=== PATIENT | female | born 1985 | race Caucasian/White ===

== ENCOUNTER 2017-12-05 17:08 | Emergency (ER) | payer OTHER ==
--- NOTE | 2017-12-05 17:21 | PDOC ---
Rapid Medical Evaluation Time Seen by Provider: 12/05/17 17:18 Medical Evaluation: 12/05/17 17:18 The patient presents with a chief complaint of: Cough for one month. Cold like symptoms for one day. Pt. 39 weeks . No vaginal bleeding. Also complains of L side pain I have performed a brief in-person evaluation of this patient; Pertinent physical exam findings: CTAB, RRR I have ordered the following: Nothing The patient will proceed to the ED for further evaluation. Discharge Disposition - Referrals Referrals: Danni Marmolejo MD [Primary Care Provider] - - Patient Instructions - Post Discharge Activity
[2017-12-05 17:31] VITALS: BMI 25.7
[2017-12-05] MEDS ORDERED: ALBUTEROL SO4 0.083% IH SOL 2.5 MG/3 ML VIAL.NEB. NEB ONE ×2 (21:03→21:10)
--- NOTE | 2017-12-05 21:03 | PDOC ---
History of Present Illness - General Chief Complaint: Cold Symptoms Stated Complaint: COUGH, 39 WEEK PREG Time Seen by Provider: 12/05/17 17:18 History Source: Patient Exam Limitations: No Limitations - History of Present Illness Initial Comments: 32 y/o afebrile female, approximately 38 weeks with due date of c/o cough since yesterday. The patient states the cough is dry and is so strong and persistent she feels like she can't breathe. She also has pain on her left side and ribs and says her lungs hurt. She was at an urgent care and they send her here. She denies f /c, n/v/d, MOHAN, body aches, CP, abnormal vaginal discharge. SCIENTIST is Dr. Marmolejo Past History - Past Medical History Allergies/Adverse Reactions: Allergies Allergy/AdvReac Type Severity Reaction Status Date / Time No Known Allergies Allergy Verified 12/05/17 17:21 Home Medications: Ambulatory Orders Oseltamivir Phosphate [Tamiflu -] 75 mg PO BID #10 capsule 12/05/17 COPD: No - Suicide/Smoking/Psychosocial Hx Smoking History: Never smoked Information on smoking cessation initiated: No Hx Alcohol Use: No Drug/Substance Use Hx: No Substance Use Type: None Review of Systems - Review of Systems Able to Perform ROS?: Yes Is the patient limited French proficient: Yes Constitutional: No: Symptoms Reported HEENTM: Yes: Nose Congestion. No: Ear Discharge, Nose Pain Respiratory: Yes: Cough, Shortness of Breath. No: Wheezing, Hemoptysis Cardiac (ROS): No: Chest Pain ABD/GI: No: Nausea, Vomiting Neurological: No: Headache, Dizziness *Physical Exam - Vital Signs Last Vital Signs Temp Pulse Resp BP Pulse Ox 98.2 F 89 19 115/71 98 12/05/17 17:19 12/05/17 17:19 12/05/17 17:19 12/05/17 17:19 12/05/17 17:19 - Physical Exam General Appearance: Yes: Nourished, Appropriately Dressed, Other (38 week gravid , ambulatory female with persistent cough) HEENT: positive: EOMI, ALLISON, Nasal Congestion, Rhinorrhea (clear). negative: Tonsillar Exudate, Tonsillar Erythema, TM Bulging, TM Dull, TM Erythema Respiratory/Chest: positive: Lungs Clear, Normal Breath Sounds. negative: Accessory Muscle Use, Labored Respiration, Wheezing Cardiovascular: positive: Regular Rhythm, Regular Rate Neurologic: positive: automotive center manager II-XII NML intact Medical Decision Making - Medical Decision Making A/P: 32 y/o female, approximately 38 weeks , c/o persistent cough with SOB since yesterday. Spoke with Dr. Louis, press operator carbon blocks SCIENTIST, and he suggests flu swab, albuterol nebulizer. If flu is negative will treat with a zpack and send upstairs for monitoring. Gave patient 2 albuterol nebs Influenza A - negative Influenza B - Positive Patient will be given Tamiflu in the ER, sent and Rx for tamiflu to her pharmacy and sent upstairs to L&D for monitoring. The patient was instructed to take entire course of Tamiflu and return to the ER with any worsening or concerning symptoms. The patient verbalizes understanding of all instructions, has no further questions and is awaiting transfer to L&D for monitoring. *DC/Admit/Observation/Transfer Diagnosis at time of Disposition: Cough, Influenza B - Discharge Dispostion Condition at time of disposition: Stable - Prescriptions Prescriptions: Oseltamivir Phosphate [Tamiflu -] 75 mg PO BID #10 capsule - Referrals Referrals: Danni Marmolejo MD [Primary Care Provider] - - Patient Instructions Printed Discharge Instructions: DI for Influenza -- Adult Additional Instructions: Discharge Instructions: -You tested Positive for Influenza B -A prescription for Tamiflu was sent to your pharmacy; please take entire course -Follow up with your SCIENTIST within 1 week -Return to the ER with any worsening or concerning symptoms. - Post Discharge Activity
[2017-12-05] MEDS ORDERED: ALBUTEROL SO4 2.5/IPRATROPIUM 0.5 INH SOL 3 ML VIAL.NEB. NEB ONE (21:06)
[2017-12-05] MEDS ORDERED: OSELTAMIVIR PHOSPHATE 75 MG CAPSULE PO ONE (22:13)
[2017-12-05] MEDS ORDERED: OSELTAMIVIR PHOSPHATE 75 MG CAPSULE ONE (22:17)
[2017-12-05 23:09] VITALS: BP 114/59; PULSE 82; TEMP 98.9
== END 2017-12-05 23:45 | disposition home or self-care (01) ==
LOC: JER 17:08
PROC: 3E0F7GC Introduction of Other Therapeutic Substance into Respiratory Tract, Via Natural or Artificial Opening (ICD-10-PCS; principal; 2017-12-05)
DX: O98.513 Other viral diseases complicating pregnancy, third trimester (principal); J10.1 Influenza due to other identified influenza virus with other respiratory manifestations; Z3A.39 39 weeks gestation of pregnancy
CPT/HCPCS: 87804; 99281-25

== ENCOUNTER 2017-12-15 01:50 | Inpatient (IN) | payer OTHER ==
[2017-12-15] MEDS ORDERED: DEXTROSE 5%-LACTATED RINGERS 1,000 ML IV SCH (02:00)
[2017-12-15 03:05] VITALS: BMI 25.9
[2017-12-15 03:05] LABS: BASO % 0.3 % (0-2.0); EOS % 0.8 % (0-4.5); HEMATOCRIT 29.1 % (32.4-45.2); HEMOGLOBIN 9.2 GM/dL (10.7-15.3); LYMPH % 33.9 % (8-40); MCH 24.2 pg (25.7-33.7); MCHC 31.5 g/dl (32.0-36.0); MEAN CELL VOLUME 76.9 fl (80-96); MEAN PLT VOLUME 9.9 fl (7.5-11.1); MONO % 10.7 % (3.8-10.2); NEUT % 54.3 % (42.8-82.8); PLATELET COUNT 179 K/MM3 (134-434); RBC 3.78 M/mm3 (3.60-5.2); RDW 15.7 % (11.6-15.6); WHITE BLOOD COUNT 3.8 K/mm3 (4.0-10.0)
[2017-12-15 03:16] LABS: INR 0.9 (0.82-1.09); PROTHROMBIN TIME (PATIENT) 10.2 SEC (9.98-11.88)
[2017-12-15 03:19] LABS: ACTIVATED PTT 31.1 SECONDS (26.9-34.4)
[2017-12-15 03:28] LABS: ANION GAP 10 (8-16); BLOOD UREA NITROGEN 6 mg/dL (7-18); CALCIUM 7.4 mg/dL (8.5-10.1); CHLORIDE 110 mmol/L (98-107); CO2 20 mmol/L (21-32); CREATININE 0.3 mg/dL (0.55-1.02); GLUCOSE,RANDOM 90 mg/dL (74-106); POTASSIUM 3.9 mmol/L (3.5-5.1); SODIUM 140 mmol/L (136-145)
[2017-12-15] MEDS ORDERED: OXYTOCIN 20 UNITS in 0.9% NS 20 UNIT/1,000 ML INFUS.BAG IV ONE (03:44)
[2017-12-15] MEDS ORDERED: LIDOCAINE HCL 1% PRESERVATIVE FREE - 30ML VIAL ONE (03:45)
--- NOTE | 2017-12-15 04:19 | HP ---
Past Medical History - Primary Care Physician PCP:: Jeferson Marie - Admission Chief Complaint: 32yo P2 with at EGA 39w5d with spontaneous active labor. 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, was prescribed Valtrex but stopped using it 1 wk ago GBS Negative Anemia History Source: Patient, Medical Record Limitations to Obtaining History: No Limitations - Past Medical History SUPERVISOR CAB: No: Alzheimer's, CVA, Dementia, Migraine, Multiple Sclerosis, Peripheral Neuropathy, Parkinson's, Seizure, Syncope, TIA, Vertigo, Other Cardiovascular: No: AFIB, Aneurysm, Aortic Insufficiency, Aortic Stenosis, CAD, CHF, Deep Vein Thrombosis, HTN, Hyperlipdemia, ID, Mitral Insufficiency, Mitral Stenosis, Murmur, Pulmonary Hypertension, Other Pulmonary: No: Asthma, Bronchitis, Cancer, COPD, O2 Dependent, Pneumonia, Previously Intubated, Pulmonary Embolus, Pulmonary Fibrosis, Sleep Apnea, Other Gastrointestinal: No: Ascites, Cancer, Constipation, Crohn's Disease, Diverticulitis, Diverticulosis, Esophageal Varices, Gastritis, GERD, GI Bleed, Hemorrhoids, Hiatal Hernia, Inflamatory Bowel Disease, Irritable Bowel Disease, Pancreatitis, Peptic Ulcer Disease, Ulcerative Colitis, Other Hepatobiliary: No: Cirrhosis, Cholelithiasis, Cholecystitis, Choledocholithiasis , Hepatitis A, Hepatitis B, Hepatitis C, Other Renal/: No: Renal Failure, Renal Inusuff, BPH, Cancer, Hematuria, Hemodialysis , Neurogenic Bladder, Renal Calculi, UTI, Other Reproductive: Yes: Other (h/o HSV, HPV, Chlamydia) ...: 5 ...Para: 2 ...Term: 2 ...: 0 ...Spon : 0 ...Induced : 2 ...Multiple Gestation: 0 ...LMP: 03/12/17 ... Weeks Gestation by Dates: 39.5 ...EDC by Dates: 12/17/17 Heme/Onc: Yes: Anemia Infectious Disease: Yes: Other (h/o HSV, HPV, Chlamydia) Psych: No: Addictions, Anxiety, Bipolar, Depression, Panic, Psychosis, Schizophrenia, Other Musculoskeletal: No: Bursitis, Chronic low back pain, Hemiparesis, Hemiplegia, Osteoarthritis, Paraplegia, Other Rheumatology: No: Fibromyalgia, Gout, Lupus, Rheumatoid Arthritis, Sarcoidosis, Vasculitis, Other ENT: No: Allergic Rhinitis, Sinusitis, Other Endocrine: No: Emmons's Disease, Mojgan's Disease, Diabetes Insipidus, Diabetes Mellitus, Hyperparathyroidism, Hyperthyroidism, Hypothyroidism, Osteopenia, SIADH, Other Dermatology: No: Basal Cell, Cellulitis, Eczema, Melanoma, Psoriasis, Squamous Cell, Other - Past Surgical History Past Surgical History: Yes: None Hx Myomectomy: No Hx Transabdominal Cerclage: No - Smoking History Smoking history: Never smoked Have you smoked in the past 12 months: No - Alcohol/Substance Use Hx Alcohol Use: No History of Substance Use: reports: None - Social History Usual Living Arrangement: Yes: With Spouse, With Child ADL: Independent History of Recent Travel: No Home Medications - Allergies Allergies/Adverse Reactions: Allergies Allergy/AdvReac Type Severity Reaction Status Date / Time doxycycline Allergy Mild Rash Verified 12/15/17 02:37 Family Disease History - Family Disease History Family History: Unremarkable Review of Systems - Review of Systems Constitutional: reports: Other (contractions, labor) Eyes: reports: No Symptoms HENT: reports: No Symptoms Neck: reports: No Symptoms Cardiovascular: reports: No Symptoms Respiratory: reports: No Symptoms Gastrointestinal: reports: No Symptoms Genitourinary: reports: No Symptoms Breasts: reports: No Symptoms Reported Musculoskeletal: reports: No Symptoms Integumentary: reports: No Symptoms Neurological: reports: No Symptoms Endocrine: reports: No Symptoms Hematology/Lymphatic: reports: No Symptoms Psychiatric: reports: No Symptoms Pain Intensity: 7 Physical Exam - Maternity Vital Signs: Vital Signs Temperature 98.6 F 12/15/17 03:00 Pulse Rate 88 12/15/17 03:00 Respiratory Rate 20 12/15/17 03:00 Blood Pressure 122/77 12/15/17 03:00 O2 Sat by Pulse Oximetry (%) Constitutional: Yes: Well Nourished, No Distress, Calm Eyes: Yes: WNL, Conjunctiva Clear HENT: Yes: WNL, Atraumatic, Normocephalic Neck: Yes: WNL, Supple, Trachea Midline Cardiovascular: Yes: WNL, Regular Rate and Rhythm Lungs: Clear to auscultation, Normal air movement - Abdominal Exam/OB Fundal Height: 39 Number of Fetuses: Single Presentation: Vertex Contractions: Yes Regularity: Irregular Intensity: Moderate Monitor Mode: External Heart Rate (range): 140 Heart Rate Location: Midline Category: I Accelerations: Non-Uniform Decelerations: None - Vaginal Exam/OB Vaginal Bleediing: No Speculum Exam: No Dilatation (cm): 9 Effacement (%): 100 Amniotic Membrane Status: Ruptured (AROM) Amniotic Fluid: Yes: Clear Presentation: Vertex/Position Station: -3 - Physical Exam Musculoskeletal: Yes: WNL Extremities: Yes: WNL Edema: No Integumentary: Yes: WNL (No genital lesions, no herpes) Deep Tendon Reflex Grade: Normal +2 ...Motor Strength: WNL Psychiatric: Yes: WNL, Alert, Oriented - Labs Lab Results: CBC, BMP 12/15/17 02:48 12/15/17 02:48 Hemorrhage Risk Assessment - Risk Factors Medium Risk Factors: Yes: None High Risk Factors: Yes: None Risk Score: 1 Risk Level: Medium Risk Assessment/Plan 32yo P2 with at EGA 39w5d with spontaneous active labor. No genital herpes lesions noted. Risks of asymptomatic shedding explained and Risks of vertical HSV transmission explained. I explained that the risks are low but the a C/S will decrease the risk. The pt declined C/S. AROM was done. Plan to monitor for head descent.
[2017-12-15] MEDS ORDERED: BUTORPHANOL TARTRATE 1 MG/ML VIAL IVPB ONE (04:50)
[2017-12-15] MEDS ORDERED: PROMETHAZINE HCL 25 MG/1 ML VIAL IVPB ONE (04:50)
[2017-12-15] MEDS ORDERED: BUTORPHANOL TARTRATE 1 MG/ML VIAL ONE (04:54)
[2017-12-15] MEDS ORDERED: PROMETHAZINE HCL 25 MG/1 ML VIAL ONE (04:54)
[2017-12-15] MEDS: IBUPROFEN 600 MG TABLET (FP) PO PRN (07:50)
[2017-12-15] MEDS: ACETAMINOPHEN 325 MG TABLET (FP) PO PRN (07:50)
[2017-12-15] MEDS ORDERED: ACETAMINOPHEN 325 MG TABLET (FP) ONE (07:52)
[2017-12-15] MEDS ORDERED: IBUPROFEN 600 MG TABLET (FP) PO ONE (07:52)
[2017-12-15] MEDS ORDERED: BENZOCAINE 28 GM HEMORRHOIDAL OINTMENT TP PRN (07:58)
[2017-12-15] MEDS ORDERED: WITCH HAZEL 50% (TUCKS) 40 PAD/JAR PAD TP PRN (07:58)
[2017-12-15] MEDS ORDERED: BISACODYL 10 MG SUPP.RECT RC PRN (07:58)
[2017-12-15] MEDS ORDERED: METHYLERGONOVINE MALEATE 0.2 MG/1 ML AMP IM PRN (07:58)
[2017-12-15] MEDS ORDERED: BENZOCAINE 20% 57 GM BOTTLE TP PRN (07:58)
[2017-12-15] MEDS ORDERED: OXYTOCIN 20 UNITS in 0.9% NS 20 UNIT/1,000 ML INFUS.BAG IV SCH (08:00)
--- NOTE | 2017-12-15 08:16 | PN ---
Delivery - Delivery Vaginal Delivery: No Problems, Spontaneous Type of Anesthesia: None Episiotomy/Laceration: None EBL (cc): 300 Delivery, Single - Stages of Labor Date 1st Stage Initiatied: 12/15/17 Time 1st Stage Initiated: 00:30 Date 2nd Stage Initiated: 12/15/17 Time 2nd Stage Initiated: 07:05 Date of Delivery: 12/15/17 Time of Delivery: 07:31 Date Placenta Delivered: 12/15/17 Time Placenta Delivered: 07:35 Placenta: Yes: Spontaneous, Normal Configuration - Condition of Mobile Solutions Architect/Maintenance Team Leader Present: No Gender: Female Weight: 3.26 kg Position: OP Total Hours ROM (Hrs/Mins): 3hr/35mins - 1 Minute Total Score: 9 5 Minutes Total Score: 9 - Feeding Plan Initial Plan: Elected not to breastfeed exclusively throughout hospitalization Benefits of Exclusively reinforced: Yes Remarks - Remarks Remarks: Uncomplicated
[2017-12-15] MEDS ORDERED: TUBERCULIN PPD 5 TU/0.1ML SYRINGE (IN PATIENT USE ONLY) ID ONE (08:30)
[2017-12-15] MEDS ORDERED: oxyCODONE HCL 5 MG TABLET PO PRN (09:03)
[2017-12-15] MEDS: PRENATAL VITAMINS W/ FOLIC ACID TABLET (FP) PO SCH (11:27)
[2017-12-16] MEDS: ACETAMINOPHEN 325 MG TABLET (FP) PO PRN ×2 (01:57→21:29)
[2017-12-16] MEDS: IBUPROFEN 600 MG TABLET (FP) PO PRN ×2 (01:58→21:23)
[2017-12-16 08:16] LABS: BASO % 0.4 % (0-2.0); EOS % 0.4 % (0-4.5); HEMATOCRIT 23.7 % (32.4-45.2); HEMOGLOBIN 7.5 GM/dL (10.7-15.3); MCH 24.2 pg (25.7-33.7); MCHC 31.6 g/dl (32.0-36.0); MEAN CELL VOLUME 76.7 fl (80-96); MEAN PLT VOLUME 9.9 fl (7.5-11.1); MONO % 6.3 % (3.8-10.2); NEUT % 73.9 % (42.8-82.8); PLATELET COUNT 138 K/MM3 (134-434); RBC 3.08 M/mm3 (3.60-5.2); RDW 16.1 % (11.6-15.6); WHITE BLOOD COUNT 6.6 K/mm3 (4.0-10.0)
[2017-12-16] MEDS: PRENATAL VITAMINS W/ FOLIC ACID TABLET (FP) PO SCH (09:43)
--- NOTE | 2017-12-16 11:26 | PN ---
Post Progress Note - Subjective Subjective: No complaints Post Day: 1 Type of Delivery: Vital Signs: Vital Signs Temperature 98.0 F 12/16/17 06:00 Pulse Rate 60 12/16/17 06:00 Respiratory Rate 20 12/16/17 06:00 Blood Pressure 106/64 12/16/17 06:00 O2 Sat by Pulse Oximetry (%) 97 12/15/17 09:45 Breast Exam: Yes: Soft Uterus: Yes: Fundus Firm, Fundus below umbilicus, Non-tender Abdomen/GI: Yes: Abdomen soft, Passing flatus, Tolerating PO Lochia: Yes: Rubra Lochia, amount: Small Extremities: Yes: Calves non-tender Perineum: Yes: Intact Activity: Ambulating - Labs Labs: CBC WBC 6.6 K/mm3 (4.0-10.0) D 12/16/17 07:28 RBC 3.08 M/mm3 (3.60-5.2) L 12/16/17 07:28 Hgb 7.5 GM/dL (10.7-15.3) L D 12/16/17 07:28 Hct 23.7 % (32.4-45.2) L D 12/16/17 07:28 MCV 76.7 fl (80-96) L 12/16/17 07:28 MCH 24.2 pg (25.7-33.7) L 12/16/17 07:28 MCHC 31.6 g/dl (32.0-36.0) L 12/16/17 07:28 RDW 16.1 % (11.6-15.6) H 12/16/17 07:28 Plt Count 138 K/MM3 (134-434) D 12/16/17 07:28 MPV 9.9 fl (7.5-11.1) 12/16/17 07:28 Neutrophils % 73.9 % (42.8-82.8) D 12/16/17 07:28 Lymphocytes % 19.0 % (8-40) D 12/16/17 07:28 Monocytes % 6.3 % (3.8-10.2) 12/16/17 07:28 Eosinophils % 0.4 % (0-4.5) 12/16/17 07:28 Basophils % 0.4 % (0-2.0) 12/16/17 07:28 Assessment/Plan 32yo P3 s/p , doing well stable, afebrile. Asymptomatic for anemia. Continue Fe supplements and PNV care instructions reviewed. Continue routine care. Ambulation encouraged Discharge instruction reviewed.
--- NOTE | 2017-12-16 11:28 | DS ---
Physical Exam-[employer] PULLER Vital Signs: Vital Signs Temperature 98.0 F 12/16/17 06:00 Pulse Rate 60 12/16/17 06:00 Respiratory Rate 20 12/16/17 06:00 Blood Pressure 106/64 12/16/17 06:00 O2 Sat by Pulse Oximetry (%) 97 12/15/17 09:45 Constitutional: Yes: Well Nourished, No Distress, Calm Eyes: Yes: WNL, Conjunctiva Clear HENT: Yes: WNL, Atraumatic, Normocephalic Neck: Yes: WNL, Supple, Trachea Midline Cardiovascular: Yes: WNL, Regular Rate and Rhythm Respiratory: Yes: WNL, Regular, CTA Bilaterally Gastrointestinal: Yes: WNL, Normal Bowel Sounds, Soft ...Rectal Exam: Yes: Deferred Renal/: Yes: WNL External Genitalia: Yes: Normal Internal Exam Deferred: Yes ....Post : Yes: Uterus firm, Uterus non-tender, Slight lochia rubra Breast(s): Yes: WNL Musculoskeletal: Yes: WNL Extremities: Yes: WNL Edema: Yes Edema: LLE: Trace, RLE: Trace Integumentary: Yes: WNL Neurological: Yes: WNL, Alert, Oriented ...Motor Strength: WNL Psychiatric: Yes: WNL, Alert, Oriented Labs: CBC, BMP 12/16/17 07:28 12/15/17 02:48 Delivery - Delivery Vaginal Delivery: No Problems, Spontaneous Type of Anesthesia: None Episiotomy/Laceration: None EBL (cc): 300 Delivery, Single - Stages of Labor Date 1st Stage Initiatied: 12/15/17 Time 1st Stage Initiated: 00:30 Date 2nd Stage Initiated: 12/15/17 Time 2nd Stage Initiated: 07:05 Date of Delivery: 12/15/17 Time of Delivery: 07:31 Time Placenta Delivered: 07:35 Placenta: Yes: Spontaneous, Normal Configuration - Condition of Mule Operator/Insulation Board Coater Operator Present: No Infant Gender: Female Weight: 3.26 kg Position: OP Total Hours ROM (Hrs/Mins): 3hr/35mins - 1 Minute Total Score: 9 5 Minutes Total Score: 9 - Feeding Plan Initial Plan: Elected not to breastfeed exclusively throughout hospitalization Benefits of Exclusively reinforced: Yes Remarks - Remarks Remarks: Uncomplicated Discharge Summary Reason For Visit: ADMIT LABOR - Instructions - Home Medications Comprehensive Discharge Medication List: Ambulatory Orders NK [No Known Home Medication] 12/15/17
[2017-12-16] MEDS ORDERED: SENNOSIDES/DOCUSATE COMBO (SENNA PLUS) TABLET (UD) PO PRN (22:00)
[2017-12-17] MEDS: ACETAMINOPHEN 325 MG TABLET (FP) PO PRN (08:57)
[2017-12-17] MEDS: IBUPROFEN 600 MG TABLET (FP) PO PRN (08:58)
[2017-12-17] MEDS: PRENATAL VITAMINS W/ FOLIC ACID TABLET (FP) PO SCH ×2 (08:58→09:21)
[2017-12-17 09:18] VITALS: BP 117/80; PULSE 70; TEMP 98.3
--- NOTE | 2017-12-17 10:15 | PN ---
Post Progress Note - Subjective Subjective: feels well, voiding, ambulating, eating regular food, breast feeding Post Day: 2 Type of Delivery: Vital Signs: Vital Signs Temperature 98.3 F 12/17/17 09:16 Pulse Rate 70 12/17/17 09:16 Respiratory Rate 20 12/17/17 09:16 Blood Pressure 117/80 12/17/17 09:16 O2 Sat by Pulse Oximetry (%) 97 12/15/17 09:45 Breast Exam: Yes: Soft Uterus: Yes: Fundus Firm Abdomen/GI: Yes: Abdomen soft Lochia: Yes: Rubra Lochia, amount: Small Extremities: Yes: Calves non-tender Perineum: Yes: Intact Activity: Ambulating - Labs Labs: CBC WBC 6.6 K/mm3 (4.0-10.0) D 12/16/17 07:28 RBC 3.08 M/mm3 (3.60-5.2) L 12/16/17 07:28 Hgb 7.5 GM/dL (10.7-15.3) L D 12/16/17 07:28 Hct 23.7 % (32.4-45.2) L D 12/16/17 07:28 MCV 76.7 fl (80-96) L 12/16/17 07:28 MCH 24.2 pg (25.7-33.7) L 12/16/17 07:28 MCHC 31.6 g/dl (32.0-36.0) L 12/16/17 07:28 RDW 16.1 % (11.6-15.6) H 12/16/17 07:28 Plt Count 138 K/MM3 (134-434) D 12/16/17 07:28 MPV 9.9 fl (7.5-11.1) 12/16/17 07:28 Neutrophils % 73.9 % (42.8-82.8) D 12/16/17 07:28 Lymphocytes % 19.0 % (8-40) D 12/16/17 07:28 Monocytes % 6.3 % (3.8-10.2) 12/16/17 07:28 Eosinophils % 0.4 % (0-4.5) 12/16/17 07:28 Basophils % 0.4 % (0-2.0) 12/16/17 07:28 Assessment/Plan 32yo s/p , PPD # 2 VSS, Afebrile Doing well Rh positive d/c home NPV x 6 wks RTO 4-6wks
== END 2017-12-17 13:30 | disposition home or self-care (01) | DRG 560 ==
LOC: JLDR 01:50 → J3WN 01:50 → UNDOADMIN 01:50 → J3W 10:03
PROVIDERS: ADMIT Obstetrics & Gynecology; ATTEND Obstetrics & Gynecology
PROC: 10E0XZZ Delivery of Products of Conception, External Approach (ICD-10-PCS; principal; 2017-12-15)
DX: O80 Encounter for full-term uncomplicated delivery (principal); Z3A.39 39 weeks gestation of pregnancy; Z37.0 Single live birth
CPT/HCPCS: 36415; 59409; 80048; 85025; 85610; 85730; 86593; 86850; 86900; 86901; 87804

== ENCOUNTER 2018-06-15 15:38 | Emergency (ER) | payer OTHER ==
[2018-06-15 16:01] VITALS: BP 114/70; PULSE 65; TEMP 98; BMI 20.7
--- NOTE | 2018-06-15 16:27 | PDOC ---
History of Present Illness - General Chief Complaint: Chest Pain Stated Complaint: CHEST PAINS Time Seen by Provider: 06/15/18 16:15 History Source: Patient - History of Present Illness Presenting Symptoms: Chest Pain Past History - Past Medical History Allergies/Adverse Reactions: Allergies Allergy/AdvReac Type Severity Reaction Status Date / Time doxycycline Allergy Mild Rash Verified 06/15/18 16:01 Home Medications: Ambulatory Orders NK [No Known Home Medication] 12/15/17 Asthma: No Cancer: No Cardiac Disorders: No COPD: No Diabetes: No HTN: No Seizures: No Thyroid Disease: No - Suicide/Smoking/Psychosocial Hx Smoking History: Never smoked Have you smoked in the past 12 months: No Information on smoking cessation initiated: No Hx Alcohol Use: No Drug/Substance Use Hx: No Substance Use Type: None Hx Substance Use Treatment: No Review of Systems - Review of Systems Constitutional: No: Chills, Fever Respiratory: No: Cough, Shortness of Breath, Wheezing Cardiac (ROS): Yes: Chest Pain. No: Lightheadedness, Palpitations, Syncope ABD/GI: No: Nausea, Vomiting *Physical Exam - Vital Signs Last Vital Signs Temp Pulse Resp BP Pulse Ox 98.0 F 65 16 114/70 100 06/15/18 16:00 06/15/18 16:00 06/15/18 16:00 06/15/18 16:00 06/15/18 16:00 - Physical Exam Comments: 06/15/18 16:32 appears mildly anxious General Appearance: Yes: Appropriately Dressed HEENT: positive: Normal Voice Neck: positive: Supple Respiratory/Chest: positive: Lungs Clear, Normal Breath Sounds. negative: Respiratory Distress Cardiovascular: positive: Regular Rate, S1, S2 Gastrointestinal/Abdominal: positive: Soft. negative: Tender Integumentary: positive: Dry, Warm Neurologic: positive: Fully Oriented, Alert, Normal Mood/Affect Heart Score/ECG Review - ECG Intrepretation Comment:: 06/15/18 16:33 Twelve-lead EKG was performed and reviewed by me. There is normal sinus rhythm with a normal rate. The axis is normal. The intervals are normal. There are no ST or T wave abnormalities. Impression: Normal twelve-lead EKG Medical Decision Making - Medical Decision Making 06/15/18 16:30 32-year-old female, no significant history, not on any control, here with chest pain. Patient states after eating spicy food today, developed left-sided chest pain that she describes as sharp and was worse with deep inspiration. Has since improved. Denies shortness of breath, dizziness, nausea or vomiting. No history of similar pain in the past. No obvious risk factors for DVT/PE and denies any illicit drugs. Patient well-appearing and stable with unremarkable exam and normal EKG as signed off by main ED attending. Stable for discharge to follow-up with primary care physician as needed *DC/Admit/Observation/Transfer Diagnosis at time of Disposition: Chest pain Qualifiers: Chest pain type: unspecified Qualified Code(s): R07.9 - Chest pain, unspecified - Discharge Dispostion Disposition: HOME Condition at time of disposition: Good - Referrals - Patient Instructions Printed Discharge Instructions: DI for Atypical Chest Pain Additional Instructions: The cause of your chest pain could possibly be indigestion or gastritis as your evaluation in the ER was normal. If symptoms worsen and you develop shortness of breath, palpitations, dizziness , nausea, etc. return to the ED, otherwise follow-up with your primary care physician - Post Discharge Activity
--- NOTE | 2018-06-16 11:31 | EKG ---
Test Reason : Blood Pressure : / mmHG Vent. Rate : 061 BPM Atrial Rate : 061 BPM P-R Int : 134 ms QRS Dur : 084 ms QT Int : 412 ms P-R-T Axes : -01 061 060 degrees QTc Int : 414 ms NORMAL SINUS RHYTHM NORMAL ECG NO PREVIOUS ECGS AVAILABLE Confirmed by ISA ERVIN, FABIO ([id number]) on 06/16/2018 11:31:32 AM Referred By: PACALINEA Confirmed By:FABIO MOSS MD
== END 2018-06-15 16:32 | disposition home or self-care (01) ==
LOC: JER 15:38 → JERFT 15:38
DX: R07.9 Chest pain, unspecified (principal)
CPT/HCPCS: 93005; 93010; 99281-25

== ENCOUNTER 2019-08-26 13:15 | Emergency (ER) | payer OTHER ==
[2019-08-26 13:22] VITALS: BP 113/50; PULSE 67; TEMP 97.9; BMI 21.1
--- NOTE | 2019-08-26 13:22 | PDOC ---
Rapid Medical Evaluation Time Seen by Provider: 08/26/19 13:19 Medical Evaluation: Allergies Allergy/AdvReac Type Severity Reaction Status Date / Time doxycycline Allergy Mild Rash Verified 06/15/18 16:01 08/26/19 13:19 CC: Right pelvic cramping pain. LMP- 08/16 PE: Abd SNTND. No CVAT. Orders: labs, urine Patient will proceed to ER for further evaluation. 08/26/19 13:22 Discharge Disposition - Diagnosis Abdominal pain - Referrals - Patient Instructions - Post Discharge Activity
[2019-08-26 15:01] LABS: URINE APPEARANCE CLEAR; URINE BILIRUBIN NEGATIVE (NEGATIVE); URINE COLOR YELLOW; URINE GLUCOSE (UA) NEGATIVE (NEGATIVE); URINE KETONE 1+ (NEGATIVE); URINE LEUK ESTERASE NEGATIVE (NEGATIVE); URINE NITRITE NEGATIVE (NEGATIVE); URINE PROTEIN NEGATIVE (NEGATIVE); URINE UROBILINOGEN 0.2 mg/dL (0.2-1.0)
--- NOTE | 2019-08-26 15:07 | PDOC ---
History of Present Illness - General Chief Complaint: Pain Stated Complaint: PELVIC PAIN Time Seen by Provider: 08/26/19 13:19 History Source: Patient Exam Limitations: No Limitations - History of Present Illness Travel History: No Initial Comments: 08/26/19 15:10 33-year-old female presents the ED with complaints of right suprapubic pain worsened upon awakening this morning. Patient states pain radiated to her right flank and even right back and denied any nausea, fever, vaginal discharge or vaginal pain with onset. Patient states history of ovarian cyst and frequently has similar discomfort patient states was unable to get an appointment with her INSURANCE OFFICE MANAGER Dr. Marmolejo so decided come to the ER today. Patient denies irregular menses with her LMP being August 16. Patient denies urinary pressure frequency history of renal colic, or recent UTI. patient states pain disappeared Prior to arrival to the ED. Timing/Duration: reports: resolved prior to arrival Quality: reports: mild, burning, sharpness Abdominal Pain Onset Location: reports: suprapubic Pain Radiation: reports: no radiation Activities at Onset: reports: none Aggravating Factors: improves with: Movement Alleviating Factors: improves with: None Past History - Travel Traveled outside of the country in the last 30 days: No Close contact w/someone who was outside of country & ill: No - Past Medical History Allergies/Adverse Reactions: Allergies Allergy/AdvReac Type Severity Reaction Status Date / Time doxycycline Allergy Mild Rash Verified 08/26/19 13:22 Home Medications: Ambulatory Orders NK [No Known Home Medication] 12/15/17 Asthma: No Cancer: No Cardiac Disorders: No COPD: No Diabetes: No HTN: No Seizures: No Thyroid Disease: No - Psycho Social/Smoking Cessation Hx Smoking History: Never smoked Have you smoked in the past 12 months: No Information on smoking cessation initiated: No Hx Alcohol Use: No Drug/Substance Use Hx: No Substance Use Type: None Hx Substance Use Treatment: No Patient Lives Alone: No Lives with/in: spouse/SO Review of Systems - Review of Systems Able to Perform ROS?: Yes Constitutional: No: Symptoms Reported Respiratory: No: Symptoms reported Cardiac (ROS): No: Symptoms Reported ABD/GI: Yes: Abdominal cramping : No: Symptoms Reported Musculoskeletal: No: Symptoms Reported Integumentary: No: Symptoms Reported Neurological: No: Symptoms reported Endocrine: No: Symptoms Reported *Physical Exam - Vital Signs Last Vital Signs Temp Pulse Resp BP Pulse Ox 97.9 F 67 19 113/50 L 100 08/26/19 13:19 08/26/19 13:19 08/26/19 13:19 08/26/19 13:19 08/26/19 13:19 - Physical Exam General Appearance: Yes: Nourished, Appropriately Dressed. No: Apparent Distress Respiratory/Chest: positive: Lungs Clear, Normal Breath Sounds. negative: Respiratory Distress, Accessory Muscle Use Cardiovascular: positive: Regular Rhythm, Regular Rate. negative: Murmur Gastrointestinal/Abdominal: positive: Normal Bowel Sounds, Soft. negative: Distended, Guarding, Rebound, Tenderness Musculoskeletal: negative: CVA Tenderness Extremity: positive: Normal Inspection Integumentary: positive: Normal Color, Warm Neurologic: positive: Motor Strength 5/5 (Ambulatory) ED Treatment Course - ADDITIONAL ORDERS Additional order review: Laboratory Results 08/26/19 08/26/19 14:20 14:20 Urine Color Yellow Urine Appearance Clear Urine pH 5.0 Ur Specific [place] 1.029 Urine Protein Negative Urine Glucose (UA) Negative Urine Ketones 1+ H Urine Blood Negative Urine Nitrite Negative Urine Bilirubin Negative Urine Urobilinogen 0.2 Ur Leukocyte Esterase Negative Urine HCG, Qual Negative Medical Decision Making - Medical Decision Making 08/26/19 15:03 Chief complaint: Right suprapubic pain this a.m. 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 Since your pain has resolved prior to my arrival and exam I recommend following up with your INSURANCE OFFICE MANAGER Dr. Marmolejo. Ami to the ED if symptoms worsen - Post Discharge Activity
== END 2019-08-26 15:25 | disposition home or self-care (01) ==
LOC: JER 13:15
DX: R10.30 Lower abdominal pain, unspecified (principal); Z88.8 Allergy status to other drugs, medicaments and biological substances
CPT/HCPCS: 81003; 84703; 87086; 99282-25

== ENCOUNTER 2020-11-14 15:01 | Emergency (ER) | payer OTHER ==
[2020-11-14 15:18] VITALS: BP 103/69; PULSE 60; TEMP 98.6; BMI 22.6
[2020-11-14] MEDS ORDERED: ACETAMINOPHEN 500 MG TABLET (FP) PO ONE (17:00)
[2020-11-14] MEDS ORDERED: ACETAMINOPHEN 500 MG TABLET (FP) ONE (17:15)
[2020-11-14 17:46] LABS: EPI CELLS >36 /uL (0-25.1); HYALINE CASTS 1 /uL (0-3.1); PH,URINE 8.5 (5.0-8.0); URINE APPEARANCE CLEAR; URINE BACTERIA 714 /uL (0-1359); URINE BILIRUBIN NEGATIVE (NEGATIVE); URINE COLOR YELLOW; URINE GLUCOSE (UA) NEGATIVE (NEGATIVE); URINE KETONE TRACE (NEGATIVE); URINE LEUK ESTERASE 1+ (NEGATIVE); URINE NITRITE NEGATIVE (NEGATIVE); URINE PROTEIN NEGATIVE (NEGATIVE); URINE RBC 5 /uL (0-23.9); URINE UROBILINOGEN 0.2 mg/dL (0.2-1.0); URINE WBC 61 /uL (0-25.8)
[2020-11-14 17:47] LABS: HCG,QUALITATIVE URINE Negative
[2020-11-14] MEDS ORDERED: CEPHALEXIN MONOHYDRATE 500 MG CAPSULE (UD) PO ONE (19:45)
[2020-11-14] MEDS ORDERED: IBUPROFEN 600 MG TABLET (FP) PO ONE (19:45)
== END 2020-11-14 19:40 | disposition home or self-care (01) ==
LOC: JERFT 15:01 → JER 15:01 → JERFT 19:40
DX: N10 Acute pyelonephritis (principal); N83.201 Unspecified ovarian cyst, right side
CPT/HCPCS: 76775-TC; 76830-TC; 81003; 84703; 99284-25

== ENCOUNTER 2022-01-12 02:54 | Emergency (ER) | payer OTHER ==
[2022-01-12 03:31] VITALS: BMI 22.6
[2022-01-12] MEDS ORDERED: ACETAMINOPHEN 500 MG TABLET (FP) PO ONE (04:45)
[2022-01-12] MEDS ORDERED: ACETAMINOPHEN 500 MG TABLET (FP) ONE (04:59)
[2022-01-12 05:51] LABS: BASO % 0.5 % (0-2.0); EOS % 0.2 % (0-4.5); HEMATOCRIT 35.6 % (32.4-45.2); HEMOGLOBIN 11.6 GM/dL (10.7-15.3); LYMPH % 14.8 % (8-40); MCH 28.6 pg (25.7-33.7); MCHC 32.6 g/dl (32.0-36.0); MEAN CELL VOLUME 87.7 fl (80-96); MEAN PLT VOLUME 9.7 fl (7.5-11.1); MONO % 3.7 % (3.8-10.2); NEUT % 80.8 % (42.8-82.8); PLATELET COUNT 168 10^3/uL (134-434); RBC 4.06 M/mm3 (3.60-5.2); RDW 14.8 % (11.6-15.6); WHITE BLOOD COUNT 4.8 K/mm3 (4.0-10.0)
[2022-01-12 06:11] LABS: ALBUMIN 3.7 g/dl (3.4-5.0); BLOOD UREA NITROGEN 12.7 mg/dL (7-18); CALCIUM 8.1 mg/dL (8.5-10.1)
[2022-01-12 06:14] LABS: CREATININE 0.5 mg/dL (0.55-1.3)
[2022-01-12 06:16] LABS: BILIRUBIN,TOTAL 0.4 mg/dL (0.2-1); TOT PROT 6.7 g/dl (6.4-8.2)
[2022-01-12 12:05] VITALS: BP 103/59; PULSE 60; TEMP 98.5
== END 2022-01-12 12:06 | disposition home or self-care (01) ==
LOC: JER 02:54
DX: R10.31 Right lower quadrant pain (principal)
CPT/HCPCS: 36415; 74177-TC; 76830-TC; 80053; 84703; 85025; 99285-25; Q9967

== ENCOUNTER 2022-02-09 08:05 | Emergency (ER) | payer OTHER ==
[2022-02-09 08:16] VITALS: PULSE 65; BMI 21.9
[2022-02-09] MEDS ORDERED: SODIUM CHLORIDE 0.9% 1000 ML INFUS.BAG IV ONE (09:21)
[2022-02-09] MEDS ORDERED: ONDANSETRON 4 MG/2 ML VIAL IVPUSH ONE (09:21)
[2022-02-09] MEDS ORDERED: ACETAMINOPHEN 1000 MG/100 ML BAG IVPB ONE (09:21)
[2022-02-09] MEDS ORDERED: ONDANSETRON 4 MG/2 ML VIAL ONE (09:37)
[2022-02-09] MEDS ORDERED: ACETAMINOPHEN INJECTION 100 ML IVPB ONE (09:37)
[2022-02-09 10:27] LABS: BASO % 0.5 % (0-2.0); EOS % 0.2 % (0-4.5); HEMATOCRIT 37.2 % (32.4-45.2); HEMOGLOBIN 12.6 GM/dL (10.7-15.3); LYMPH % 18.3 % (8-40); MCH 29.2 pg (25.7-33.7); MCHC 33.8 g/dl (32.0-36.0); MEAN CELL VOLUME 86.4 fl (80-96); MEAN PLT VOLUME 9.8 fl (7.5-11.1); MONO % 5.8 % (3.8-10.2); NEUT % 75.2 % (42.8-82.8); PLATELET COUNT 157 10^3/uL (134-434); RBC 4.31 M/mm3 (3.60-5.2); RDW 15.1 % (11.6-15.6)
[2022-02-09 10:38] LABS: INR 1.15 (0.83-1.09); PROTHROMBIN TIME (PATIENT) 13.3 SEC (9.7-13.0)
[2022-02-09 10:41] LABS: ACTIVATED PTT 32.7 SECONDS (25.2-36.5)
[2022-02-09] MEDS ORDERED: SODIUM CHLORIDE 0.9% 500 ML INFUS.BAG IV ONE (10:44)
[2022-02-09 10:45] LABS: ALBUMIN 4.4 g/dl (3.4-5.0); CALCIUM 9.1 mg/dL (8.5-10.1)
[2022-02-09 10:48] LABS: CREATININE 0.6 mg/dL (0.55-1.3)
[2022-02-09 10:50] LABS: BILIRUBIN,TOTAL 0.7 mg/dL (0.2-1); TOT PROT 7.4 g/dl (6.4-8.2)
[2022-02-09] MEDS ORDERED: morphine CARPU-JECT 4 MG/1 ML DISP.SYRIN IVPUSH ONE (10:53)
[2022-02-09] MEDS ORDERED: morphine SULFATE 4 MG/ML VIAL ONE (10:56)
[2022-02-09 11:29] LABS: EPI CELLS 13 /uL (0-25.1); HYALINE CASTS 0 /uL (0-3.1); PH,URINE >= 9.0 (5.0-8.0); URINE APPEARANCE CLEAR; URINE BACTERIA 213 /uL (0-1359); URINE BILIRUBIN NEGATIVE (NEGATIVE); URINE COLOR YELLOW; URINE GLUCOSE (UA) NEGATIVE (NEGATIVE); URINE KETONE 3+ (NEGATIVE); URINE LEUK ESTERASE NEGATIVE (NEGATIVE); URINE NITRITE NEGATIVE (NEGATIVE); URINE PROTEIN 1+ (NEGATIVE); URINE RBC 7 /uL (0-23.9); URINE UROBILINOGEN 0.2 mg/dL (0.2-1.0); URINE WBC 14 /uL (0-25.8)
[2022-02-09 12:04] VITALS: BP 98/59; TEMP 98.2
== END 2022-02-09 12:57 | disposition home or self-care (01) ==
LOC: JER 08:05
PROC: 3E0333Z Introduction of Anti-inflammatory into Peripheral Vein, Percutaneous Approach (ICD-10-PCS; principal; 2022-02-09)
PROC: 3E033NZ Introduction of Analgesics, Hypnotics, Sedatives into Peripheral Vein, Percutaneous Approach (ICD-10-PCS; 2022-02-09)
PROC: 3E033GC Introduction of Other Therapeutic Substance into Peripheral Vein, Percutaneous Approach (ICD-10-PCS; 2022-02-09)
DX: N83.201 Unspecified ovarian cyst, right side (principal)
CPT/HCPCS: 36415; 76830-TC; 80053; 81003; 83605; 83690; 84703; 85025; 85610; 85730; 86850; 86900; 86901; 87086; 99284-25

== ENCOUNTER 2022-03-10 18:19 | Emergency (ER) | payer OTHER ==
[2022-03-10 18:36] VITALS: BP 130/80; PULSE 68; TEMP 97.6; BMI 21.9
[2022-03-10] MEDS ORDERED: SODIUM CHLORIDE 0.9% 500 ML INFUS.BAG IV ONE (18:58)
[2022-03-10] MEDS ORDERED: KETOROLAC TROMETHAMINE 30 MG/1 ML VIAL IVPUSH ONE (18:59)
[2022-03-10] MEDS ORDERED: ONDANSETRON 4 MG/2 ML VIAL IVPUSH ONE (19:00)
[2022-03-10] MEDS ORDERED: ONDANSETRON 4 MG/2 ML VIAL ONE (19:05)
[2022-03-10] MEDS ORDERED: KETOROLAC TROMETHAMINE 15 MG/ML VIAL ONE (19:05)
== END 2022-03-10 20:00 | disposition home or self-care (01) ==
LOC: JER 18:19
PROC: 3E0333Z Introduction of Anti-inflammatory into Peripheral Vein, Percutaneous Approach (ICD-10-PCS; principal; 2022-03-10)
PROC: 3E033GC Introduction of Other Therapeutic Substance into Peripheral Vein, Percutaneous Approach (ICD-10-PCS; 2022-03-10)
DX: N94.6 Dysmenorrhea, unspecified (principal)
CPT/HCPCS: 99284-25

== ENCOUNTER 2022-03-13 04:04 | Inpatient (IN) | payer OTHER ==
[2022-03-09 15:54] VITALS: BMI 21.9
[2022-03-13 09:14] LABS: ALBUMIN 3.6 g/dl (3.4-5.0); CALCIUM 8.5 mg/dL (8.5-10.1)
[2022-03-13 09:15] LABS: BLOOD UREA NITROGEN 8.2 mg/dL (7-18)
[2022-03-13 09:17] LABS: CREATININE 0.6 mg/dL (0.55-1.3)
[2022-03-13 09:19] LABS: BILIRUBIN,TOTAL 0.6 mg/dL (0.2-1); TOT PROT 6.7 g/dl (6.4-8.2)
[2022-03-13] MEDS ORDERED: MIDAZOLAM HCL 2 MG/2 ML SINGLE DOSE VIAL ONE ×2 (12:01)
[2022-03-13] MEDS ORDERED: BUPIVACAINE HCL/PF 0.25% (2.5MG/ML) 10 ML VIAL ONE (12:04)
[2022-03-13] MEDS ORDERED: ceFAZolin SODIUM 1 GM VIAL IVPB ONE (12:55)
[2022-03-13] MEDS ORDERED: NEOSTIGMINE METHYLSULFATE 0.5 MG/ML - 10 ML MDV ONE (13:06)
[2022-03-13] MEDS ORDERED: ONDANSETRON 4 MG/2 ML VIAL IVPUSH PRN (14:18)
[2022-03-13] MEDS ORDERED: IBUPROFEN 800 MG/8 ML IJ IVPB PRN (14:18)
[2022-03-13] MEDS ORDERED: IBUPROFEN 600 MG TABLET (FP) PO PRN (14:18)
[2022-03-13] MEDS ORDERED: ELECTROLYTE-148 SOLN 1,000 ML IV SCH (14:30)
[2022-03-13] MEDS: oxyCODONE HCL 5 MG TABLET PO PRN ×2 (18:35→22:54)
[2022-03-14 06:06] VITALS: PULSE 66; TEMP 98.3
[2022-03-14 08:31] LABS: BASO % 0.6 % (0-2.0); EOS % 0.1 % (0-4.5); HEMATOCRIT 36.5 % (32.4-45.2); HEMOGLOBIN 12.4 GM/dL (10.7-15.3); LYMPH % 24.4 % (8-40); MCH 29.5 pg (25.7-33.7); MCHC 33.9 g/dl (32.0-36.0); MONO % 8.1 % (3.8-10.2); NEUT % 66.8 % (42.8-82.8); PLATELET COUNT 196 10^3/uL (134-434); RBC 4.19 M/mm3 (3.60-5.2); RDW 14.3 % (11.6-15.6); WHITE BLOOD COUNT 6.8 K/mm3 (4.0-10.0)
[2022-03-14 14:28] VITALS: BP 98/61
== END 2022-03-14 18:27 | disposition home or self-care (01) | DRG 513 ==
LOC: JASU-SURG 04:04 → J2C 14:19 → J8W 17:55
PROVIDERS: ADMIT Obstetrics & Gynecology; ATTEND Obstetrics & Gynecology
PROC: 0UT50ZZ Resection of Right Fallopian Tube, Open Approach (ICD-10-PCS; 2022-03-13)
PROC: 0UT50ZZ Resection of Right Fallopian Tube, Open Approach (ICD-10-PCS; principal; 2022-03-13 10:00)
DX: N83.201 Unspecified ovarian cyst, right side (principal)
CPT/HCPCS: 36415; 76830-TC; 80053; 84703; 85025; 86850; 86900; 86901; 88104; 88305-TC; 88307-TC; 88331-TC; 94010; 94760; Q0162

== ENCOUNTER 2024-09-23 11:10 | Emergency (ER) | payer OTHER ==
[2024-09-23 11:21] VITALS: TEMP 97.7; BMI 23.6
[2024-09-23 13:31] LABS: BASO % 0.9 % (0-2.0); EOS % 0.2 % (0-4.5); HEMATOCRIT 37.2 % (32.4-45.2); HEMOGLOBIN 12.1 GM/dL (10.7-15.3); LYMPH % 25.5 % (8-40); MCH 26.1 pg (25.7-33.7); MCHC 32.5 g/dl (32.0-36.0); MEAN CELL VOLUME 80.3 fl (80-96); MEAN PLT VOLUME 9.4 fl (7.5-11.1); MONO % 8.8 % (3.8-10.2); NEUT % 64.6 % (42.8-82.8); PLATELET COUNT 192 10^3/uL (134-434); RBC 4.63 M/mm3 (3.60-5.2)
[2024-09-23 13:51] LABS: POTASSIUM 4.5 mmol/L (3.5-5.1)
[2024-09-23 13:55] LABS: ALBUMIN 3.7 g/dl (3.4-5.0); BLOOD UREA NITROGEN 10.2 mg/dL (7-18); CALCIUM 8.7 mg/dL (8.5-10.1)
[2024-09-23 13:59] LABS: CREATININE 0.7 mg/dL (0.55-1.3)
[2024-09-23 14:00] LABS: BILIRUBIN,TOTAL 0.5 mg/dL (0.2-1); TOT PROT 7.9 g/dl (6.4-8.2)
[2024-09-23 14:57] LABS: HIV INTERPRETATION NEGATIVE (NEGATIVE)
[2024-09-23 15:32] VITALS: BP 102/73; PULSE 92; RESP 16
== END 2024-09-23 15:33 | disposition home or self-care (01) ==
LOC: JER 11:10
DX: J18.9 Pneumonia, unspecified organism (principal); M79.10 Myalgia, unspecified site; R51.9 Headache, unspecified; R05.9 Cough, unspecified; R06.02 Shortness of breath; R55 Syncope and collapse; R07.9 Chest pain, unspecified; Z20.822 Contact with and (suspected) exposure to COVID-19
CPT/HCPCS: 0241U-QW; 36415; 71046-TC-FY; 80053; 84484; 85025; 85379; 86803; 87389; 93005; 93010; 99285-25